=== PATIENT | female | born 1960 | race Two or more races ===

== ENCOUNTER 2019-03-31 07:24 | Emergency (ER) | payer OTHER ==
[~2019-03-31] VITALS: Ht 170.2 cm; Wt 108.9 kg
[~2019-03-31 07:24] MED LIST: ATENOLOL25 MG
[2019-03-31] MEDS ORDERED: TOPROL XL50 M1 PO (07:30)
== END 2019-04-02 10:43 | disposition home or self-care (01) ==
LOC: ER 07:24
DX: K57.90 Diverticulosis of intestine, part unspecified, without perforation or abscess without bleeding (principal); N20.0 Calculus of kidney; R11.11 Vomiting without nausea; B96.0 Mycoplasma pneumoniae [M. pneumoniae] as the cause of diseases classified elsewhere; R50.9 Fever, unspecified

== ENCOUNTER → 2019-07-09 | Emergency (ER) | payer OTHER ==
[~2019-07-09] VITALS: Ht 170.2 cm; Wt 99.8 kg
[~2019-07-09] MED LIST changes: +MOBIC15 MG PO; +TOPROL XL50 M1 PO
== END | disposition home or self-care (01) ==
LOC: ER 23:02
DX: M25.512 Pain in left shoulder (principal); M54.2 Cervicalgia

== ENCOUNTER 2020-08-12 09:10 | Emergency (ER) | payer OTHER ==
[~2020-08-12] VITALS: Ht 170.2 cm; Wt 90.7 kg
[2020-08-12] MEDS ORDERED: CIPRO500 MG (09:22)
[2020-08-12] MEDS ORDERED: FLAGYL500MG (09:22)
== END 2020-08-12 15:51 | disposition home or self-care (01) ==
LOC: ER 09:10
DX: K57.90 Diverticulosis of intestine, part unspecified, without perforation or abscess without bleeding (principal); N20.0 Calculus of kidney; R10.84 Generalized abdominal pain

== ENCOUNTER 2021-08-04 12:06 | Outpatient (CLI) | payer OTHER ==
[~2021-08-04 12:06] MED LIST changes: +CIPRO500 MG; +FLAGYL500MG
== END 2021-08-04 12:14 | disposition home or self-care (01) ==
LOC: RAD 12:06
PROVIDERS: ATTEND Urology
DX: E11.9 Type 2 diabetes mellitus without complications (principal)

== ENCOUNTER 2021-08-06 11:00 | Inpatient (IN) | payer OTHER ==
[~2021-08-06] VITALS: Ht 170.2 cm; Wt 104.3 kg
== END 2021-08-08 10:20 | disposition home or self-care (01) | DRG 694 ==
LOC: CIR.AMB 11:00 → O/R 18:33 → OB/GYN 18:33
PROVIDERS: ADMIT Urology; ATTEND Urology
PROC: 0TF48ZZ Fragmentation in Left Kidney Pelvis, Via Natural or Artificial Opening Endoscopic (ICD-10-PCS; 2021-08-06)
PROC: 0TF78ZZ Fragmentation in Left Ureter, Via Natural or Artificial Opening Endoscopic (ICD-10-PCS; 2021-08-06)
PROC: BT1FZZZ Fluoroscopy of Left Kidney, Ureter and Bladder (ICD-10-PCS; 2021-08-06)
PROC: 0TC18ZZ Extirpation of Matter from Left Kidney, Via Natural or Artificial Opening Endoscopic (ICD-10-PCS; principal; 2021-08-06 10:30)
DX: N20.0 Calculus of kidney (principal); N20.1 Calculus of ureter; Z20.822 Contact with and (suspected) exposure to COVID-19

== ENCOUNTER → 2022-07-06 | Emergency (ER) | payer OTHER ==
[~2022-07-06] VITALS: Ht 170.2 cm; Wt 106.6 kg
[~2022-07-06] MED LIST changes: +JANUMET 50-1,01 EACH PO
== END | disposition home or self-care (01) ==
LOC: ER 12:54
DX: R10.32 Left lower quadrant pain (principal); K57.92 Diverticulitis of intestine, part unspecified, without perforation or abscess without bleeding; I10 Essential (primary) hypertension